=== PATIENT | male | born 1960 | race African-American/Black ===

== ENCOUNTER 2018-03-16 13:31 | Inpatient (IN) | payer BC, OTHER ==
--- NOTE | 2018-03-16 16:39 | PDOC ---
History of Present Illness - General Chief Complaint: Injury Stated Complaint: FALL/ BODY PAIN - History of Present Illness Initial Comments: 57-year-old male with multiple comorbidities including peripheral vascular disease presents for evaluation after fall yesterday. He states he fell down steps because he lost his balance and tripped hitting his head and injuring his left lower leg.There was no loss of consciousness post injury nausea or vomiting. He does have a headache. No dizziness. 03/16/18 16:37 03/16/18 16:38 Past History - Past Medical History Allergies/Adverse Reactions: Allergies Allergy/AdvReac Type Severity Reaction Status Date / Time Penicillins Allergy Rash Verified 03/16/18 13:55 Home Medications: Ambulatory Orders Aspirin [ASA] 81 mg PO DAILY 04/16/12 BUPROPion HCL "SR" [Wellbutrin Sr [Nf]] 150 mg PO DAILY 04/16/12 Zolpidem Tartrate [Ambien] 10 mg PO HS 04/16/12 predniSONE [Deltasone] 40 mg PO DAILY 04/16/12 Albuterol Sulfate Inhaler - [Ventolin HFA Inhaler -] 2 inh IH QID PRN #0 inh 03/22 Bupropion HCl [Wellbutrin Xl -] 300 mg PO AM #0 tab 04/18/12 Alprazolam [Xanax] 2 mg PO DAILY 03/16/18 Atorvastatin Ca [Lipitor] 20 mg PO HS 03/16/18 Cilostazol [Pletal -] 100 mg PO BID 03/16/18 Clopidogrel Bisulfate [Plavix] 75 mg PO DAILY 03/16/18 Docusate Sodium [Colace] 100 mg PO TID 03/16/18 Duloxetine HCl [Cymbalta] 30 mg PO DAILY 03/16/18 Ferrous Sulfate 325 mg PO BID 03/16/18 Fluticasone Propionate [Flovent Diskus] 100 mcg IH BID 03/16/18 Gabapentin 800 mg PO BID 03/16/18 Montelukast Sodium [Singulair] 10 mg PO HS 03/16/18 Nicotine Patch [Nicoderm Patch -] 1 patch TD DAILY 03/16/18 Oxycodone HCl/Acetaminophen [Oxycodone-Acetaminophen 10-325] 1 each PO QID 03/16 Pregabalin [Lyrica -] 50 mg PO BID 03/16/18 Tadalafil [Adcirca] 20 mg PO ASDIR 03/16/18 Cardiac Disorders: Yes (peripheral artery disease) COPD: No HTN: Yes Hypercholesterolemia: Yes Psychiatric Problems: Yes (anxiety) - Surgical History Cardiac Surgery: Yes (angioplasty x4) - Suicide/Smoking/Psychosocial Hx Smoking Status: Yes Smoking History: Current every day smoker Number of Cigarettes Smoked Daily: 12 Information on smoking cessation initiated: No 'Breaking Loose' booklet given: 04/16/12 Hx Alcohol Use: No Review of Systems - Review of Systems Musculoskeletal: Yes: See HPI Neurological: Yes: Headache All Other Systems: Reviewed and Negative *Physical Exam - Vital Signs Last Vital Signs Temp Pulse Resp BP Pulse Ox 98.5 F 85 18 107/63 97 03/16/18 13:55 03/16/18 13:55 03/16/18 13:55 03/16/18 13:55 03/16/18 13:55 - Physical Exam Comments: HEAD: NC/AT EYES: Conjuntiva clear Ears: Canals and TM's normal NOSE: No d/c THROAT: Moist mucous membrances, oral pharanx clear, uvula midline NECK: Supple without adenopathy CARDIAC: S1 S2 LUNGS: CTA Full and Equal breath sounds ABDOMEN: Soft NT ND MS: Full ROM in all joints without edema the left lower leg is tender about the area of the mid shaft of the fibula do not appreciate crepitation NEUROLOGIC: No gross sensory or motor deficits, NVID SKIN: Normal color and temperature no lesions or rashes 03/16/18 16:38 ED Treatment Course - RADIOLOGY Radiology Studies Ordered: Category Date Time Status HEAD CT WITHOUT CONTRAST [CT] Stat CT Scan 03/16/18 16:36 Ordered LEG TIB/FIB-LEFT [RAD] Stat Radiology 03/16/18 16:37 Ordered Medical Decision Making - Medical Decision Making CAT scan of his head and x-ray of the left leg are normal showing no acute pathology. I discussed this case with a preventative care keycase assembler from [facility] and it seems this patient has had recent mental status changes. I was unaware of this at the initial evaluation the patient seemed to be a good historian. Due to these recent mental status changes he is unable to take care of his 10-year-old son who is telling the snow removal/plowing that he has frequent falls is beginning to talk to himself and calls for people that are not present in the home. He is unable to take care of his son at this point. Zonal able to cook improperly feed him. I will transfer this patient to the main ER for further evaluation 03/16/18 18:45 *DC/Admit/Observation/Transfer Diagnosis at time of Disposition: Closed head injury, Mental status alteration - Referrals Referrals: Cynthia Charlton MD [Primary Care Provider] - - Patient Instructions - Post Discharge Activity
--- NOTE | 2018-03-16 19:37 | PDOC ---
History of Present Illness - General Chief Complaint: Injury Stated Complaint: FALL/ BODY PAIN Time Seen by Provider: 03/16/18 19:36 History Source: Patient - History of Present Illness Initial Comments: 03/16/18 20:01 Patient is a 57 year old male with a PMH of PVD (s/p femoral artery bypass), CVA x2 (uncertain of residual deficits), presents to our ED after a fall down a flight of stairs. Patient states he was helping his son with laundry when the bag became to heavy and he fell down a flight of stairs hitting his head and "twisting" his right leg. Patient was evaluated in triage at which time he was noted by family members to have a recent h/o mental status changes. CT head and RLE x-ray were negative and patient was sent to ED for further evaluation as patient noted some recent mental status changes including being confused as to where he is located (patient was in [place] but was insistent he was in [place] on two occasions this week) as well as waking up in the middle of the night asking for his daughter who lives out of state and his mother who is . Patient affirms he is unable to complete some ADL's including cooking and cleaning Patient's sister interviewed separately notes h/o alcohol and cocaine abuse as well 4-5 year history of multiple episodes of angry outbursts, stating he is unable to care for his son but denies any lynda psychiatric disorder diagnosis. Patient's sister also notes 2-3 month h/o weight loss. Allergy: Penicillin Surgical: Femoral artery bypass Social: patient denies current toxic habits but acknowledges past cocaine use Past History - Past Medical History Allergies/Adverse Reactions: Allergies Allergy/AdvReac Type Severity Reaction Status Date / Time Penicillins Allergy Rash Verified 03/16/18 13:55 Home Medications: Ambulatory Orders Aspirin [ASA] 81 mg PO DAILY 04/16/12 BUPROPion HCL "SR" [Wellbutrin Sr [Nf]] 150 mg PO DAILY 04/16/12 Zolpidem Tartrate [Ambien] 10 mg PO HS 04/16/12 predniSONE [Deltasone] 40 mg PO DAILY 04/16/12 Albuterol Sulfate Inhaler - [Ventolin HFA Inhaler -] 2 inh IH QID PRN #0 inh 03/22 Bupropion HCl [Wellbutrin Xl -] 300 mg PO AM #0 tab 04/18/12 Alprazolam [Xanax] 2 mg PO DAILY 03/16/18 Atorvastatin Ca [Lipitor] 20 mg PO HS 03/16/18 Cilostazol [Pletal -] 100 mg PO BID 03/16/18 Clopidogrel Bisulfate [Plavix] 75 mg PO DAILY 03/16/18 Docusate Sodium [Colace] 100 mg PO TID 03/16/18 Duloxetine HCl [Cymbalta] 30 mg PO DAILY 03/16/18 Ferrous Sulfate 325 mg PO BID 03/16/18 Fluticasone Propionate [Flovent Diskus] 100 mcg IH BID 03/16/18 Gabapentin 800 mg PO BID 03/16/18 Montelukast Sodium [Singulair] 10 mg PO HS 03/16/18 Nicotine Patch [Nicoderm Patch -] 1 patch TD DAILY 03/16/18 Oxycodone HCl/Acetaminophen [Oxycodone-Acetaminophen 10-325] 1 each PO QID 03/16 Pregabalin [Lyrica -] 50 mg PO BID 03/16/18 Tadalafil [Adcirca] 20 mg PO ASDIR 03/16/18 Cardiac Disorders: Yes (peripheral artery disease) COPD: No HTN: Yes Hypercholesterolemia: Yes Psychiatric Problems: Yes (anxiety) - Surgical History Cardiac Surgery: Yes (angioplasty x4) - Suicide/Smoking/Psychosocial Hx Smoking Status: Yes Smoking History: Current every day smoker Number of Cigarettes Smoked Daily: 12 Information on smoking cessation initiated: No 'Breaking Loose' booklet given: 04/16/12 Hx Alcohol Use: No Review of Systems - Review of Systems Constitutional: No: Chills, Fever HEENTM: No: Blurred Vision Respiratory: No: Cough, Shortness of Breath Cardiac (ROS): No: Chest Pain, Lightheadedness, Palpitations, Syncope ABD/GI: No: Constipated, Diarrhea, Nausea, Vomiting : No: Burning Psychiatric: Yes: Stressors, Sleep Pattern Change, Emotional Problems, Mood Swings *Physical Exam - Vital Signs Last Vital Signs Temp Pulse Resp BP Pulse Ox 98.5 F 85 18 107/63 97 03/16/18 13:55 03/16/18 13:55 03/16/18 13:55 03/16/18 13:55 03/16/18 13:55 - Physical Exam General Appearance: Yes: Nourished, Thin HEENT: positive: EOMI, [place] Neck: positive: Trachea midline, Supple Respiratory/Chest: positive: Lungs Clear, Normal Breath Sounds Cardiovascular: positive: S1, S2. negative: Edema, JVD Gastrointestinal/Abdominal: positive: Normal Bowel Sounds, Soft. negative: Guarding, Rebound, Tenderness, Hernia, Mass Musculoskeletal: negative: CVA Tenderness (R), CVA Tenderness (L) Extremity: positive: Normal Capillary Refill, Normal Inspection Integumentary: positive: Normal Color, Dry, Warm Neurologic: positive: Fully Oriented, Alert, Other (flat affect, does not make eye contact). negative: Confused, Disoriented Deep Tendon Reflexes: Knee (L): 3+, Knee (R): 3+ ED Treatment Course - LABORATORY CBC & Chemistry Diagram: 03/16/18 21:25 03/17/18 00:59 Medical Decision Making - Medical Decision Making 03/16/18 20:32 57 year old male with a PMH of PVD (s/p B/L femoral bypass), CVA x2 and h/o ETOH and cocaine abuse evaluated for AMS including hallucinations, possible sundowning like changes. Frontal diagnosis: substance abuse, vitamin deficiencies, hypothyroidism, vascular dementia, NPH or possibly malignancy though latter two diagnoses are less likely. 03/16/18 20:34 UTox positive for benzodiazepines and opiods. 03/16/18 20:50 UA shows 472 WBC, 3+ Leukocyte Esterase, PCN Allergy, will give Bactrim + IV NS 03/16/18 23:20 Patient sleeping comfortably. No leukocytosis, ammonia mildy elevated @ 66. CMP pending, B12, TSH pending. Planned disposition admission + neuro consult. 03/17/18 02:37 CMP shows mildly elevated AST, elevated B-12. Case d/w hospitalist service will accept for admission for further evaluation including full neurological evaluation. *DC/Admit/Observation/Transfer Diagnosis at time of Disposition: Closed head injury, Mental status alteration - Referrals Referrals: Cynthia Charlton MD [Primary Care Provider] - - Patient Instructions - Post Discharge Activity
[2018-03-16 19:44] LABS: URINE APPEARANCE CLOUDY; URINE BILIRUBIN NEGATIVE (<2.0 mg/dL); URINE COLOR DKYELLOW; URINE GLUCOSE (UA) NEGATIVE (NEGATIVE); URINE KETONE NEGATIVE (NEGATIVE); URINE NITRITE POSITIVE (NEGATIVE); URINE UROBILINOGEN NEGATIVE mg/dL (0.2-1.0)
[2018-03-16 20:02] LABS: URINE LEUK ESTERASE 3+ (NEGATIVE); URINE PROTEIN 1+ (NEGATIVE)
[2018-03-16 20:21] LABS: URINE BACTERIA RARE /hpf (NONE SEEN); URINE MUCUS RARE
[2018-03-16 20:30] LABS: COCAINE, UR NEGATIVE ng/ml (CUTOFF=300); METHADONE, UR NEGATIVE ng/ml (CUTOFF=300); PHENCYCLIDINE,URINE NEGATIVE ng/ml (CUTOFF=25); URINE AMPHETAMINES NEGATIVE ng/ml (CUTOFF=500); URINE BARBITURATES NEGATIVE ng/ml (CUTOFF=200)
[2018-03-16 20:32] LABS: OPIATES, URI POSITIVE ng/ml (CUTOFF=300); URINE BENZODIAZEPINES POSITIVE ng/ml (CUTOFF=200)
[2018-03-16] MEDS ORDERED: SODIUM CHLORIDE 0.9% 500 ML INFUS.BAG IV ONE (20:59)
[2018-03-16] MEDS ORDERED: NITROFURANTOIN MACROCRYSTAL 50 MG CAPSULE (FP) PO ONE (21:15)
[2018-03-16] MEDS ORDERED: NITROFURANTOIN MACROCRYSTAL 50 MG CAPSULE (FP) PO SCH (21:15)
--- NOTE | 2018-03-16 21:36 | PDOC ---
Attending Attestation - HPI HPI: 03/16/18 21:42 The patient is a 57 year old male with a past medical history of peripheral artery disease, hypertension, and hyperlipidemia who presents to the emergency department for evaluation of altered mental status. The patient reports hitting his head yesterday after falling down a flight of stairs. He denies of loss of consciousness. The patient reports feeling confused and states he woke up this morning screaming for his daughter, but he states he screams because he misses his daughter. The patient states he does not trust anyone at all besides his son. He notes he was with his son in [place] yesterday, but thought he was in [place]. Patient reports associated symptom of a headache. The patient denies chest pain, shortness of breath, and dizziness. Denies fever , chills, nausea, vomiting, diarrhea, and constipation. Denies urinary urgency/ frequency, dysuria, and hematuria. Denies hallucinations and suicidal/homicidal ideations. Allergies: Penicillins Social History: Current everyday smoker. EMR reveals History of EtOH and cocaine abuse. Pt is denying substance abuse history. Surgical History: Angioplasty x4. Femoral artery bypass (08/2017) PCP: Dr. Cynthia Charlton ([phone]) - Physicial Exam PE: NAD EOMI, [place] MMM, OP WNL NCAT, no midline cervical tenderness Soft, NTND No edema, WWP, no rash (+)Difficulty assessing gait favoring left leg secondary to recent injury. Neuro grossly intact. A&O x 3, Mood: irritable. <Reji Escoto - Last Filed: 03/16/18 23:13> - Resident Resident Name: Candi Zhang - ED Attending Attestation I have performed the following: I have examined & evaluated the patient, The case was reviewed & discussed with the resident, I agree w/resident's findings & plan, Exceptions are as noted - Medical Decision Making 03/17/18 00:17 57yoM initially presented for fall, now on hold for concern of reports of AMS and odd behavior. pt is sole caregiver for 10yo son. On evaluation, pt is irritable and defensive, no e/o acute psychosis. Concern for organic etiology of behavior issues. - labs - ekg - cxr - HCT obtained from [facility] - social work - admit. Pt's son is staying with the pt's sister for the time being. <Domi Smith - Last Filed: 03/17/18 00:18> Attestations - Attestations Documentation prepared by Reji Escoto, acting as biomedical equipment specialist for Domi Smith MD. <Reji Escoto - Last Filed: 03/16/18 23:13>
[2018-03-16 21:45] LABS: BASO % 0.8 % (0-2.0); EOS % 3.2 % (0-4.5); HEMATOCRIT 41.6 % (35.4-49); HEMOGLOBIN 13.5 GM/dL (11.7-16.9); MCH 28.4 pg (25.7-33.7); MCHC 32.4 g/dl (32.0-35.9); MEAN CELL VOLUME 87.8 fl (80-96); MONO % 5.1 % (3.8-10.2); NEUT % 64.9 % (42.8-82.8); RBC 4.74 M/mm3 (4.00-5.60); RDW 16.7 % (11.9-15.9); WHITE BLOOD COUNT 7.2 K/mm3 (4.0-10.0)
[2018-03-16] MEDS ORDERED: NITROFURANTOIN MACROCRYSTAL 50 MG CAPSULE (FP) ONE (22:03)
[2018-03-16 22:35] LABS: PLATELET COUNT 235 K/MM3 (134-434)
[2018-03-16 22:36] LABS: MEAN PLT VOLUME 8.7 fl (7.5-11.1); PLATELET ESTIMATE ADEQUATE
[2018-03-17 01:41] LABS: ALBUMIN 3.7 g/dl (3.4-5.0); ANION GAP 6 (8-16); BILIRUBIN,TOTAL 0.5 mg/dL (0.2-1.0); BLOOD UREA NITROGEN 21 mg/dL (7-18); CALCIUM 9.2 mg/dL (8.5-10.1); CHLORIDE 108 mmol/L (98-107); CO2 30 mmol/L (21-32); CREATININE 1.4 mg/dL (0.7-1.3); GLUCOSE,RANDOM 89 mg/dL (74-106); POTASSIUM 4.4 mmol/L (3.5-5.1); SGOT/AST 46 U/L (15-37); SGPT/ALT 29 U/L (12-78); SODIUM 144 mmol/L (136-145); TOT PROT 7.3 g/dl (6.4-8.2)
[2018-03-17 01:42] LABS: ALK PHOS 90 U/L (45-117)
[2018-03-17] MEDS ORDERED: ACETAMINOPHEN 500 MG TABLET (FP) PO ONE (02:13)
[2018-03-17] MEDS ORDERED: ACETAMINOPHEN 325 MG TABLET (FP) ONE (02:27)
[2018-03-17] MEDS: SODIUM CHLORIDE 1,000 ML IV SCH ×2 (04:34→23:29)
[2018-03-17] MEDS: HEPARIN NA (PORCINE) 5,000 UNITS/ML 1ML VIAL SQ SCH ×3 (06:05→21:32)
--- NOTE | 2018-03-17 06:42 | HP ---
CHIEF COMPLAINT: left leg pain s/p fall PCP: HISTORY OF PRESENT ILLNESS: Three days prior, patient fell a flight of stairs while carrying a heavy laundry bag, hitting his head and left leg. He denies any LOC, nausea or vomiting. Persistence of pain prompted patient to see a social sciences research scientist and was subsequently brought to the ED. At the ED, patient's sister reported patient to have altered mental status. She noted patient had confusion of where he was previously, insisting he was in [place] when he was in [place]. She also reported patient to have 4-5 year history of multiple episodes of angry outbursts, stating unable to care for his son. But upon interview, patient was very insistent that he should be the only one to take care of his son, and does not want the aunt to do anything with him. Patient reported to be depressed, have no appetite and had weight loss, and sleep disturbances (takes Remeron). He denied chest pain, SOB, headache, nausea , vomiting, fever, chills, diarrhea, constipation, dysuria. ER course was notable for: (1)Ammonia 66.25, Vit B12 1404 (2)UA: protein 1+, blood 1+, leukocyte esterase 3+, WBC 472, RBC 13 (3)Urine drug screen:Opiates +, BZD + (4)CT head - negative; RLE Xray - negative Recent Travel:denies any recent travel PAST MEDICAL HISTORY: PVD CVA HTN HLD Anxiety Disorder PAST SURGICAL HISTORY: Femoral artery bypass Social History: Smokin sticks per day (12 sticks per day on the chart) Alcohol:denies EtOH use Drugs: denies illicit drug use Family History: Allergies Penicillins Allergy (Verified 03/16/18 13:55) Rash HOME MEDICATIONS: Home Medications Medication Instructions Recorded Aspirin [ASA] 81 mg PO DAILY 04/16/12 BUPROPion HCL "SR" [Wellbutrin Sr 150 mg PO DAILY 04/16/12 [Nf]] Zolpidem Tartrate [Ambien] 10 mg PO HS 04/16/12 predniSONE [Deltasone] 40 mg PO DAILY 04/16/12 Albuterol Sulfate Inhaler - 2 inh IH QID PRN #0 inh 04/18/12 [Ventolin HFA Inhaler -] Bupropion HCl [Wellbutrin Xl -] 300 mg PO AM #0 tab 04/18/12 Alprazolam [Xanax] 2 mg PO DAILY 03/16/18 Atorvastatin Ca [Lipitor] 20 mg PO HS 03/16/18 Cilostazol [Pletal -] 100 mg PO BID 03/16/18 Clopidogrel Bisulfate [Plavix] 75 mg PO DAILY 03/16/18 Docusate Sodium [Colace] 100 mg PO TID 03/16/18 Duloxetine HCl [Cymbalta] 30 mg PO DAILY 03/16/18 Ferrous Sulfate 325 mg PO BID 03/16/18 Fluticasone Propionate [Flovent 100 mcg IH BID 03/16/18 Diskus] Gabapentin 800 mg PO BID 03/16/18 Montelukast Sodium [Singulair] 10 mg PO HS 03/16/18 Nicotine Patch [Nicoderm Patch -] 1 patch TD DAILY 03/16/18 Oxycodone HCl/Acetaminophen 1 each PO QID 03/16/18 [Oxycodone-Acetaminophen 10-325] Pregabalin [Lyrica -] 50 mg PO BID 03/16/18 Tadalafil [Adcirca] 20 mg PO ASDIR 03/16/18 REVIEW OF SYSTEMS CONSTITUTIONAL: +loss of appetite, +weight loss Absent: fever, chills, diaphoresis, generalized weakness, malaise HEENT: Absent: rhinorrhea, nasal congestion, throat pain, throat swelling, difficulty swallowing, mouth swelling, ear pain, eye pain, visual changes CARDIOVASCULAR: Absent: chest pain, syncope, palpitations, irregular heart rate, lightheadedness , peripheral edema RESPIRATORY: Absent: cough, shortness of breath, dyspnea with exertion, orthopnea, wheezing, stridor, hemoptysis GASTROINTESTINAL: Absent: abdominal pain, abdominal distension, nausea, vomiting, diarrhea, constipation, melena, hematochezia GENITOURINARY: Absent: dysuria, frequency, urgency, hesitancy, hematuria, flank pain, genital pain MUSCULOSKELETAL: Absent: myalgia, arthralgia, joint swelling, back pain, neck pain SKIN: Absent: rash, itching, pallor HEMATOLOGIC/IMMUNOLOGIC: Absent: easy bleeding, easy bruising, lymphadenopathy, frequent infections ENDOCRINE: Absent: unexplained weight gain, unexplained weight loss, heat intolerance, cold intolerance NEUROLOGIC: Absent: headache, focal weakness or paresthesias, dizziness, unsteady gait, seizure, bladder or bowel incontinence PSYCHIATRIC: +anxiety, +depression Absent: suicidal or homicidal ideation, hallucinations. PHYSICAL EXAMINATION Vital Signs - 24 hr 03/16/18 03/17/18 03/17/18 13:55 02:33 05:29 Temperature 98.5 F 100.7 F H 98.9 F Pulse Rate 85 Pulse Rate [ 73 Right] Respiratory 18 16 Rate Blood Pressure 107/63 Blood Pressure 113/63 [Left Arm] O2 Sat by Pulse 97 100 Oximetry (%) GENERAL: Awake, alert, and fully oriented, in no acute distress. HEAD: Normal with no signs of trauma. EYES: Pupils equal, round and reactive to light, extraocular movements intact, sclera anicteric, conjunctiva clear. EARS, NOSE, THROAT: Ears normal, nares patent, oropharynx clear without exudates. Moist mucous membranes. NECK: Normal range of motion, supple without lymphadenopathy, JVD, or masses. LUNGS: Breath sounds equal, clear to auscultation bilaterally. No accessory muscle use. HEART: Regular rate and rhythm, normal S1 and S2 without murmur, rub or gallop. ABDOMEN: Soft, nontender, not distended, normoactive bowel sounds. MUSCULOSKELETAL: Normal range of motion at all joints. No CVA tenderness. UPPER EXTREMITIES: 2+ pulses, warm, well-perfused. No cyanosis. No clubbing. No peripheral edema. LOWER EXTREMITIES: 2+ pulses, warm, well-perfused. No calf tenderness. No peripheral edema. NEUROLOGICAL: +facial droop (from previous CVA), sensation intact, motor 5/5. Normal speech. Normal gait. PSYCHIATRIC: Cooperative. Good eye contact. Appropriate mood and affect. SKIN: Warm, dry, normal turgor, no rashes or lesions noted. Laboratory Results - last 24 hr 03/16/18 03/16/18 03/16/18 19:25 19:25 21:25 WBC 7.2 RBC 4.74 Hgb 13.5 Hct 41.6 D MCV 87.8 MCH 28.4 MCHC 32.4 RDW 16.7 H Plt Count 235 MPV 8.7 Absolute Neuts (auto) 4.7 Neutrophils % 64.9 Lymphocytes % 26.0 Monocytes % 5.1 D Eosinophils % 3.2 Basophils % 0.8 Nucleated RBC % 0 Platelet Estimate Adequate Platelet Comment Sodium Potassium Chloride Carbon Dioxide Anion Gap BUN Creatinine Creat Clearance w eGFR Random Glucose Calcium Total Bilirubin AST ALT Alkaline Phosphatase Ammonia Total Protein Albumin Vitamin B12 TSH Urine Color Dkyellow Urine Appearance Cloudy Urine pH 5.0 Ur Specific [place] 1.018 Urine Protein 1+ H Urine Glucose (UA) Negative Urine Ketones Negative Urine Blood 1+ H Urine Nitrite Positive Urine Bilirubin Negative Urine Urobilinogen Negative Ur Leukocyte Esterase 3+ H Urine WBC (Auto) 472 Urine RBC (Auto) 13 Urine Bacteria Rare Urine Mucus Rare Opiates Screen Positive Methadone Screen Negative Barbiturate Screen Negative Phencyclidine Screen Negative Ur Amphetamines Screen Negative MDMA (Ecstasy) Screen Negative Benzodiazepines Screen Positive Cocaine Screen Negative U Marijuana (THC) Screen Negative 03/16/18 03/16/18 03/16/18 21:25 21:25 21:25 WBC RBC Hgb Hct MCV MCH MCHC RDW Plt Count MPV Absolute Neuts (auto) Neutrophils % Lymphocytes % Monocytes % Eosinophils % Basophils % Nucleated RBC % Platelet Estimate Platelet Comment Sodium Cancelled Potassium Cancelled Chloride Cancelled Carbon Dioxide Cancelled Anion Gap Cancelled BUN Cancelled Creatinine Cancelled Creat Clearance w eGFR Cancelled Random Glucose Cancelled Calcium Cancelled Total Bilirubin Cancelled AST Cancelled ALT Cancelled Alkaline Phosphatase Cancelled Ammonia 66.25 H Total Protein Cancelled Albumin Cancelled Vitamin B12 TSH Cancelled Urine Color Urine Appearance Urine pH Ur Specific [place] Urine Protein Urine Glucose (UA) Urine Ketones Urine Blood Urine Nitrite Urine Bilirubin Urine Urobilinogen Ur Leukocyte Esterase Urine WBC (Auto) Urine RBC (Auto) Urine Bacteria Urine Mucus Opiates Screen Methadone Screen Barbiturate Screen Phencyclidine Screen Ur Amphetamines Screen MDMA (Ecstasy) Screen Benzodiazepines Screen Cocaine Screen U Marijuana (THC) Screen 03/16/18 03/17/18 03/17/18 21:25 00:59 00:59 WBC RBC Hgb Hct MCV MCH MCHC RDW Plt Count MPV Absolute Neuts (auto) Neutrophils % Lymphocytes % Monocytes % Eosinophils % Basophils % Nucleated RBC % Platelet Estimate Platelet Comment Sodium 144 Potassium 4.4 Chloride 108 H Carbon Dioxide 30 D Anion Gap 6 L BUN 21 H Creatinine 1.4 H Creat Clearance w eGFR 52.62 Random Glucose 89 D Calcium 9.2 Total Bilirubin 0.5 AST 46 H ALT 29 Alkaline Phosphatase 90 Ammonia Total Protein 7.3 Albumin 3.7 Vitamin B12 Cancelled 1404 H TSH 0.74 Urine Color Urine Appearance Urine pH Ur Specific [place] Urine Protein Urine Glucose (UA) Urine Ketones Urine Blood Urine Nitrite Urine Bilirubin Urine Urobilinogen Ur Leukocyte Esterase Urine WBC (Auto) Urine RBC (Auto) Urine Bacteria Urine Mucus Opiates Screen Methadone Screen Barbiturate Screen Phencyclidine Screen Ur Amphetamines Screen MDMA (Ecstasy) Screen Benzodiazepines Screen Cocaine Screen U Marijuana (THC) Screen CBC, BMP 03/16/18 21:25 03/17/18 00:59 ASSESSMENT/PLAN: Patient is a 57 year old male with past medical history of PVD (s/p femoral artery bypass), CVA, HTN, HLD, and Anxiety disorder, presented with left leg pain from fall. At the ED, patient's sister reported patient to have altered mental status. #Altered mental status: patient had episode of fever at the ED. -probably secondary to UTI, will need to rule out other causes. -blood culture and CXR ordered -fever and AMS, no nuchal rigidity -- rule out meningitis. -rule out Syphilis -- RPR titers pending. -patient had episodes of angry outbursts and depression -- Acute psychosis vs. Bipolar disorder. -opiates and BZD positive on urine -- may be drug-induced. -Psychiatry consult appreciated. -rule out stroke-- brain MRI ordered. -Dr. Cuellar consult appreciated. #Urinary Tract infection: -UA showed 1+protein, 1+blood, 3+leukocyte esterase, 472 WBC, 13 RBC -urine culture pending -IV fluids started -At the ED, patient's sister reported patient to have altered mental status. -IV Levofloxacin 750 mg qd x 5 days #Hypertension: chronic, controlled #Hyperlipidemia: chronic -continue Lipitor 20 mg. #FEN -IV NS (0.9%) at 100ml/hr -electrolytes wnl, routine BMP monitoring -sodium restricted diet #Prophylaxis -Heparin 5000 units sq tid #Disposition -admit to med-surg -full code Visit type - Emergency Visit Emergency Visit: Yes ED Registration Date: 03/17/18 Care time: The patient presented to the Emergency Department on the above date and was hospitalized for further evaluation of their emergent condition. - New Patient This patient is new to me today: Yes Date on this admission: 03/17/18 - Critical Care Critical Care patient: No Hospitalist Screening - Colonoscopy Questionnaire Colonoscopy Questionnaire: Colonoscopy Questionnaire - Patient: 50 - 75 years old and never had a screening colonoscopy: Unknown History of colon or rectal polyps, or CA: Unknown History of IBD, Crohn's disease or UC: Unknown History of abdominal radiation therapy as a child: Unknown - Relative: 1 with colon or rectal CA, or polyps at age 60 or younger: Unknown Colon or rectal CA diagnosed at age 45 or younger: Unknown Multiple relatives with colon or rectal CA: Unknown - Outcome: Screening Result: Negative Screen
--- NOTE | 2018-03-17 06:56 | PN ---
Teaching Attending Note Name of Resident: Megan Chowdhury ATTENDING PHYSICIAN STATEMENT I saw and evaluated the patient. Chart, data, imaging reviewed. I reviewed the resident's note and discussed the case with the resident. I agree with the resident's findings and plan as documented. SUBJECTIVE: 57 year old male with past medical history of PVD (s/p femoral artery bypass), CVA, HTN, HLD, and Anxiety disorder, c/o left leg pain from fall. Three days prior, patient fell a flight of stairs while carrying a heavy laundry bag, hitting his head and left leg. There was no LOC. Patient with AMS, brought in to hospital for further eval. He has chronic right facial droop- says for the last 2 years. OBJECTIVE: Last Vital Signs Temp Pulse Resp BP Pulse Ox 98.9 F 73 16 113/63 100 03/17/18 05:29 03/17/18 02:33 03/17/18 02:33 03/17/18 02:33 03/17/18 02:33 General- nad, drowsy heent -atraumatic, poor dentition neck -supple cv- s1+s2+ rrr chest- cta b/l abdomen -soft, bs+ ext- left lower ext tenderness Abnormal Lab Results 03/16/18 03/16/18 03/16/18 19:25 21:25 21:25 RDW 16.7 H Chloride Anion Gap BUN Creatinine AST Ammonia 66.25 H Vitamin B12 Urine Protein 1+ H Urine Blood 1+ H Ur Leukocyte Esterase 3+ H 03/17/18 03/17/18 00:59 00:59 RDW Chloride 108 H Anion Gap 6 L BUN 21 H Creatinine 1.4 H AST 46 H Ammonia Vitamin B12 1404 H Urine Protein Urine Blood Ur Leukocyte Esterase ASSESSMENT AND PLAN: #57yo man s/p fall and altered mental status- TSH, Vit B12 were wnl. AMS may be due to UTI as UA showed pyuria and pt with fever. Should r/o meningitis/ encephalitis as pt was confused with fever present. R/o occult stroke as there is history of vascular disease. Head CT was was neg but MRI is more sensitive. Utox also pos for opiates and benzos which may contribute to AMS. -tele/obs -neuro evaluation for LP to r/o meningitis -brain MRI to evaluate for occult infarcts -syphilis serology -lyme serology -urine culture -blood culture -blood ethanol level -ceftriaxone 1g IV q24hrs for possible uti -fall precuations -bed rest -heparin sc for dvt ppx #[place] Palsy- r/o lyme, occult stroke -see resident note for details
[2018-03-17 08:53] LABS: ANION GAP 10 (8-16); BLOOD UREA NITROGEN 21 mg/dL (7-18); CALCIUM 9.3 mg/dL (8.5-10.1); CHLORIDE 109 mmol/L (98-107); CO2 25 mmol/L (21-32); CREATININE 1.3 mg/dL (0.7-1.3); GLUCOSE,RANDOM 84 mg/dL (74-106); MAGNESIUM 2.1 mg/dL (1.8-2.4); SODIUM 144 mmol/L (136-145)
[2018-03-17 09:02] LABS: HEMATOCRIT 35.6 % (35.4-49); HEMOGLOBIN 11.7 GM/dL (11.7-16.9); MCH 28.7 pg (25.7-33.7); MCHC 32.8 g/dl (32.0-35.9); MEAN CELL VOLUME 87.4 fl (80-96); MEAN PLT VOLUME 8.5 fl (7.5-11.1); PLATELET COUNT 187 K/MM3 (134-434); RBC 4.08 M/mm3 (4.00-5.60); RDW 16.5 % (11.9-15.9); WHITE BLOOD COUNT 5.4 K/mm3 (4.0-10.0)
--- NOTE | 2018-03-17 12:13 | CON.PSY ---
Psychiatry Consult Chief Complaint: 57 year old male with a history of anxiety disorder and chronic medical [id number] including CVA. Patient apparantly fell on the stairs and found to have AMS. Symptoms: reports: Anxiety - Previous Psychiatric Treatment Outpatient: Less than 6 mos ago Inpatient: None - Previous Substance Abuse Treatment Outpatient: None Inpatient: None - Reason for Previous Treatment Reason for Previous Treatment: Anxiety or Panic Disorder - Current Medications Current Medications: Active Medications Heparin Sodium (Porcine) (Heparin -) 5,000 unit SQ TID COUNT INCLUDES THE [facility] Last Admin: 03/17/18 06:05 Dose: Not Given Sodium Chloride (Normal Saline -) 1,000 mls @ 75 mls/hr IV ASDIR COUNT INCLUDES THE [facility] Last Admin: 03/17/18 04:34 Dose: 75 mls/hr Levofloxacin (Levaquin 750 Mg Premixed Ivpb -) 750 mg in 150 mls @ 150 mls/hr IVPB DAILY COUNT INCLUDES THE [facility]; Protocol Stop: 03/22/18 09:59 Last Admin: 03/17/18 11:11 Dose: 150 mls/hr - Allergies Allergies: Allergies Allergy/AdvReac Type Severity Reaction Status Date / Time Penicillins Allergy Rash Verified 03/16/18 13:55 - Current Living Status Usual Living Arrangement: With Child - Current Mental Status Evaluation Appearance: Well Groomed Attitude: Cooperative - Affect Affect: Full Range Appropriateness: Appropriate to Content - Mood Mood: Anxious - Speech/Language Expressive: Coherent - Psychomotor Activity Psychomotor Activity: Normal - Thought Process Thought Process: Intact - Thought Content Hallucinations: Absent Delusions: Absent - Self Perception Self Perception: No Impairment - Cognition Attention: Alert Orientation: Time Memory, Immediate Recall: Intact Memory, Short Term: 3/3 Memory, Remote with Promptin/3 - Concentration Serial Sevens Intact: Yes Simple Calculations Intact: Yes - Abstraction Proverb Interpretation: Intact Judgement: Intact - Insight Insight: Intact - Impulse Control Impulse Control: Good Control - Suicidal Ideation Suicidal Ideation: No - Homicidal Ideation Homicidal Ideation: No Assessment/Plan 1) Continue with Xanax as prescribed, 2) Discharge when medically clear.
--- NOTE | 2018-03-17 16:26 | EKG ---
Test Reason : Blood Pressure : / mmHG Vent. Rate : 066 BPM Atrial Rate : 066 BPM P-R Int : 194 ms QRS Dur : 102 ms QT Int : 392 ms P-R-T Axes : -17 -01 006 degrees QTc Int : 410 ms NORMAL SINUS RHYTHM INCOMPLETE RIGHT BUNDLE BRANCH BLOCK POSSIBLE INFERIOR INFARCT , AGE UNDETERMINED ABNORMAL ECG Confirmed by Lm Hoskins MD ([id number]) on 03/17/2018 4:25:41 PM Referred By: Confirmed By:Lm Hoskins MD
[2018-03-17] MEDS ORDERED: PATIENT'S OWN MEDICATION (NON-FORMULARY) (Oxycodone Hcl/Acetaminophen [Oxycodone-Acetamino PO PRN (17:23)
[2018-03-17] MEDS ORDERED: MONTELUKAST NA 10 MG TABLET PO SCH (17:45)
[2018-03-17] MEDS: NICOTINE 21 MG/24 HOURS TOPICAL PATCH TD SCH (18:07)
--- NOTE | 2018-03-17 19:07 | PN ---
Teaching Attending Note Name of Resident: Jean Ahumada ATTENDING PHYSICIAN STATEMENT I saw and evaluated the patient. I reviewed the resident's note and discussed the case with the resident. I agree with the resident's findings and plan as documented. SUBJECTIVE:c/o foot pain which he states has improved. said he was not confused. he recalls all the events yesterday that he was carrying laundry down the stairs and dropped the basket on his foot and fell hitting his head. denies LOC, fever, chills, N/V/C/D, dysuria, hematuria or urinary urgency OBJECTIVE: Last Vital Signs Temp Pulse Resp BP Pulse Ox 98.4 F 68 18 130/76 100 03/17/18 18:00 03/17/18 18:00 03/17/18 18:00 03/17/18 18:00 03/17/18 16:36 General NAD A&O x3 CV S1 S2 RRR no murmur/rub/gallop Lungs CTA B/L no wheezing/rales/rhonchi Abdomen soft NT/ND Extremities R foot diffuse tenderness. pulse intact. able to ambulate the toes ASSESSMENT AND PLAN: 57 yo M with PMH PVD s/p fem-pop bypass, CVA, hTN, dyslipidemia and anxiety and presented to the Er after mechanical fall and felt to be confused on arrival 1. Acute metabolic encephalopathy- due to UTI. now appears oriented. claims he was never confused. will need to speak with family to determine baseline. started on Levaquin. PCN allergy noted. will f/u Cx. neuro consulted. 2. Mechanical fall- imaging negative for fracture. HEad CT negative for acute pathology. is able to ambulate on the foot. con tiwht pain control. PT eval. 3. PENNY- due to dehydration. on IVF. cont. avoid nephrotoxic agents 4. HTN- controlled 5. dyslipidemia- statin 6. bipolar- no signs of manic episode. on seroquel 7. DVT ppx- hep sq
[2018-03-17] MEDS ORDERED: ALBUTEROL SO4 0.083% IH SOL 2.5 MG/3 ML VIAL.NEB. NEB ONE (19:30)
--- NOTE | 2018-03-17 19:37 | CONSULT ---
Consult - text type - Consultation Consultation Note: NEUROLOGY CONSULTATION is greatly appreciated: This 57 yo RH man is disabled due to bipolar disease and sarcoidosis. Lives with his 10 yo son for whom he has legal custody that he "is trying to keep." PMH also sig for HTN, DM, Chol, COPD. PVD, s/p Fem-pop bypasses- on pletal AND Plavix. Patient continues to smoke, often while still wearing a nicoderm patch. H/O ETOH and stimulant abuse in the past. Denies current use. At this time he cannot recall the names of any of his medications. Apparently, he is on Wellbutrin (300 mg), possibly duloxetine, alprazolam, and lyrica (dose uncertain) and oxycodone for chronic leg pains. Seen by me in the past (last visit 03/06/17) for chronic B/L Mar's palsies attributed to sarcoidosis as well as chronic nocturnal leg pains (L>R) with negative workup and responsiveness to Dopamine agonists suggesting Dx of RLS. According to family, patient has had deterioration in behavior and organization of the last few weeks, and cannot care for his son. Now admitted after a fall down FOS carrying laundry without head trauma but with increased leg pains. X Rays - In ER: Urine HGV=[id number]. Pt started on levaquin. Ammonia=64 mg%. B12, TSH Normal. CT of head (reviewed): Normal BESS: No head trauma. Neck supple. Inocente's negative. Cor reg. Unkempt. NEURO: Found hiding under sheets but actually hypervigilent with pressured, confused speech and flight of ideas. Impossible to obtain a cogent recent history. Ox3. Moderate left and mild right peripheral facial weakness. Left exotropia with full EOM's Normal strength, tone bulk and reflexes. Toes downgoing Normal FTN Normal sensory. Romberg neg Gait: antalgic to the left foot. IMP: 1. Toxic-metabolic encephalopathy due to UTI. 2. Bipolar disease- currently manic (psychotic) 3. B/L Mar's Palsies due to sarcoidosis SUGGEST: Continue antibiotics vs UTI. XRays of the left foot. Repeat ammonia level. ELHAM levels. Continue alprazolam to avoid Benzodiazepine withdrawal. Continue Bupropion XL 300 mg qd while confirming home meds and doses. Quetiapine 50 mg PO q HS (no Zolpidem). Confirm behavioral changes with family members. May need Psyche Rx/in patient psyche transfer when UTI is cleared. Thank you very much, Guido Cuellar MD
[2018-03-17] MEDS: oxyCODONE HCL 5 MG TABLET PO PRN (20:46)
[2018-03-17] MEDS: ACETAMINOPHEN 325 MG TABLET (FP) PO PRN (20:46)
[2018-03-17] MEDS: QUEtiapine FUMARATE 25 MG TABLET (FP) PO SCH (20:48)
--- NOTE | 2018-03-17 20:56 | PN ---
Physical Exam: SUBJECTIVE: Patient seen and examined at bedside. pt was hiding under blanket and anxious c/o foot pain. denies LOC, fever, chills, RANDALL, N/V/D or urinary sxs OBJECTIVE: Vital Signs Period Temp Pulse Resp BP Sys/Roblero Pulse Ox Last 24 Hr 98.4 F-100.7 F 67-76 16-18 103-130/63-79 98-100 GENERAL: Awake, alert, and fully oriented. agitated and anxious. Found hiding under blanket.with pressured, confused speech and flight of ideas. difficult to obtain a coherent hx. HEAD: NCAT EYES: PERRL, extraocular movements intact, sclera anicteric, conjunctiva clear. EARS, NOSE, THROAT: nares patent, oropharynx clear without exudates.MMM NECK: Normal range of motion, supple without lymphadenopathy, JVD, or masses. LUNGS: CTAB. No accessory muscle use. HEART: RRR, normal S1 and S2 without murmur, rub or gallop. ABDOMEN: Soft, nontender, not distended, normoactive bowel sounds. MUSCULOSKELETAL: Normal range of motion at all joints. No CVA tenderness. UPPER EXTREMITIES: 2+ pulses, warm, well-perfused. No cyanosis. No clubbing. No peripheral edema. LOWER EXTREMITIES: 2+ pulses, warm, well-perfused. No calf tenderness. No peripheral edema. NEUROLOGICAL: +facial droop (from previous CVA), sensation intact, motor 5/5. Normal speech. Normal gait. PSYCHIATRIC: Cooperative. Good eye contact. agitated and anxious SKIN: Warm, dry, normal turgor, no rashes or lesions noted. Laboratory Results - last 24 hr 03/16/18 03/16/18 03/16/18 20:00 21:25 21:25 WBC 7.2 RBC 4.74 Hgb 13.5 Hct 41.6 D MCV 87.8 MCH 28.4 MCHC 32.4 RDW 16.7 H Plt Count 235 MPV 8.7 Absolute Neuts (auto) 4.7 Neutrophils % 64.9 Lymphocytes % 26.0 Monocytes % 5.1 D Eosinophils % 3.2 Basophils % 0.8 Nucleated RBC % 0 Platelet Estimate Adequate Platelet Comment Sodium Cancelled Potassium Cancelled Chloride Cancelled Carbon Dioxide Cancelled Anion Gap Cancelled BUN Cancelled Creatinine Cancelled Creat Clearance w eGFR Cancelled Random Glucose Cancelled Calcium Cancelled Phosphorus Magnesium Total Bilirubin Cancelled AST Cancelled ALT Cancelled Alkaline Phosphatase Cancelled Ammonia Total Protein Cancelled Albumin Cancelled Vitamin B12 TSH RPR Titer Nonreactive 03/16/18 03/16/18 03/16/18 21:25 21:25 21:25 WBC RBC Hgb Hct MCV MCH MCHC RDW Plt Count MPV Absolute Neuts (auto) Neutrophils % Lymphocytes % Monocytes % Eosinophils % Basophils % Nucleated RBC % Platelet Estimate Platelet Comment Sodium Potassium Chloride Carbon Dioxide Anion Gap BUN Creatinine Creat Clearance w eGFR Random Glucose Calcium Phosphorus Magnesium Total Bilirubin AST ALT Alkaline Phosphatase Ammonia 66.25 H Total Protein Albumin Vitamin B12 Cancelled TSH Cancelled RPR Titer 03/17/18 03/17/18 03/17/18 00:59 00:59 08:10 WBC 5.4 RBC 4.08 Hgb 11.7 Hct 35.6 MCV 87.4 MCH 28.7 MCHC 32.8 RDW 16.5 H Plt Count 187 D MPV 8.5 Absolute Neuts (auto) Neutrophils % Lymphocytes % Monocytes % Eosinophils % Basophils % Nucleated RBC % Platelet Estimate Platelet Comment Sodium 144 Potassium 4.4 Chloride 108 H Carbon Dioxide 30 D Anion Gap 6 L BUN 21 H Creatinine 1.4 H Creat Clearance w eGFR 52.62 Random Glucose 89 D Calcium 9.2 Phosphorus Magnesium Total Bilirubin 0.5 AST 46 H ALT 29 Alkaline Phosphatase 90 Ammonia Total Protein 7.3 Albumin 3.7 Vitamin B12 1404 H TSH 0.74 RPR Titer 03/17/18 08:10 WBC RBC Hgb Hct MCV MCH MCHC RDW Plt Count MPV Absolute Neuts (auto) Neutrophils % Lymphocytes % Monocytes % Eosinophils % Basophils % Nucleated RBC % Platelet Estimate Platelet Comment Sodium 144 Potassium 4.0 Chloride 109 H Carbon Dioxide 25 Anion Gap 10 BUN 21 H Creatinine 1.3 Creat Clearance w eGFR 57.31 Random Glucose 84 Calcium 9.3 Phosphorus 3.0 Magnesium 2.1 Total Bilirubin AST ALT Alkaline Phosphatase Ammonia Total Protein Albumin Vitamin B12 TSH RPR Titer Active Medications Generic Name Dose Route Start Last Admin Trade Name Freq PRN Reason Stop Dose Admin Acetaminophen 325 mg 03/17/18 17:38 Tylenol - PO Q8H PRN PAIN 6-10 Alprazolam 2 mg 03/17/18 22:00 Xanax - PO TID [facility] Aspirin 81 mg 08/08/18 17:18 Asa - PO DAILY SAMANTA Atorvastatin Calcium 80 mg 03/17/18 22:00 Lipitor - PO HS SAMANTA Bupropion HCl 300 mg 03/17/18 17:30 03/17/18 18:07 Wellbutrin Xl - PO 300 mg DAILY SAMANTA Administration Heparin Sodium (Porcine) 5,000 unit 03/17/18 06:00 03/17/18 14:46 Heparin - SQ 5,000 unit TID SAMANTA Administration Sodium Chloride 1,000 mls @ 75 mls/hr 03/17/18 04:00 03/17/18 04:34 Normal Saline - IV 75 mls/hr ASDIR SAMANTA Administration Levofloxacin 750 mg in 150 mls @ 150 mls/hr 03/17/18 10:00 03/17/18 11:11 Levaquin 750 Mg Premixed Ivpb - IVPB 03/22/18 09:59 150 mls/hr DAILY SAMANTA Administration Protocol Mirtazapine 15 mg 03/17/18 22:00 Remeron - PO HS SAMANTA Montelukast Sodium 10 mg 03/17/18 22:00 Singulair - PO HS SAMANTA Nicotine 21 mg 03/17/18 17:30 03/17/18 18:07 Nicoderm Patch - TD 21 mg DAILY SAMANTA Administration Oxycodone HCl 10 mg 03/17/18 17:38 Roxicodone - PO Q8H PRN PAIN 6-10 Pregabalin 100 mg 03/17/18 22:00 Lyrica - PO TID SAMANTA Quetiapine Fumarate 50 mg 03/17/18 21:00 Seroquel - PO HS SAMANTA ASSESSMENT/PLAN: Patient is a 57 year old male with past medical history of PVD (s/p femoral artery bypass), CVA, HTN, HLD, and Anxiety disorder, presented with left leg pain s/p mechanical fall. At the ED, patient's sister reported patient to have altered mental status. #Acute metabolic encephalopathy: patient had episode of fever at the ED. -probably secondary to UTI, will need to rule out other causes. -blood culture pending. -CXR neg -fever and AMS, no nuchal rigidity -- rule out meningitis. -RPR titers neg. -patient had episodes of angry outbursts and depression -- Acute psychosis vs. Bipolar disorder. -opiates and BZD positive on urine -- may be drug-induced. -Psychiatry consult appreciated. -rule out stroke-- brain MRI ordered. -Dr. Cuellar consult appreciated. -Quetiapine 50 mg PO q HS (no Zolpidem). -alprazolam to avoid Benzodiazepine withdrawal. -Continue Bupropion XL 300 mg qd while confirming home meds and doses. -Repeat ammonia level -consider XRays of the left foot, ELHAM levels? #UTI: -UA showed 1+protein, 1+blood, 3+leukocyte esterase, 472 WBC, 13 RBC -urine culture pending -IV fluids started -At the ED, patient's sister reported patient to have altered mental status. -IV Levofloxacin 750 mg qd x 5 days #PENNY- due to dehydration. -improved w/ IVF #Hypertension: chronic, controlled #Hyperlipidemia: chronic -continue Lipitor 20 mg. #FEN -IV NS (0.9%) at 100ml/hr -electrolytes wnl, routine BMP monitoring -sodium restricted diet #Prophylaxis -Heparin 5000 units sq tid #Disposition -admit to med-surg -full code -pt eval Visit type - Emergency Visit Emergency Visit: Yes ED Registration Date: 03/17/18 Care time: The patient presented to the Emergency Department on the above date and was hospitalized for further evaluation of their emergent condition. - New Patient This patient is new to me today: Yes Date on this admission: 03/17/18 - Critical Care Critical Care patient: No
[2018-03-17] MEDS: PREGABALIN 100 MG CAPSULE PO SCH (21:32)
[2018-03-17] MEDS: MIRTAZAPINE 15 MG TABLET (FP) PO SCH (21:32)
[2018-03-17] MEDS: ALPRAZolam 2 MG TABLET PO SCH (21:33)
[2018-03-17] MEDS: MONTELUKAST NA 10 MG TABLET PO SCH (21:33)
[2018-03-17] MEDS: ATORVASTATIN CA 80 MG TABLET (FP) PO SCH (21:33)
[2018-03-17] MEDS ORDERED: PATIENT'S OWN MEDICATION (NON-FORMULARY) (Oxycodone Hcl/Acetaminophen [Oxycodone-Acetamino PO SCH (22:00)
[2018-03-18] MEDS ORDERED: ALBUTEROL SO4 0.083% IH SOL 2.5 MG/3 ML VIAL.NEB. NEB ONE (05:13)
[2018-03-18] MEDS: PREGABALIN 100 MG CAPSULE PO SCH ×3 (06:08→21:48)
[2018-03-18] MEDS: SODIUM CHLORIDE 1,000 ML IV SCH (06:08)
[2018-03-18] MEDS: HEPARIN NA (PORCINE) 5,000 UNITS/ML 1ML VIAL SQ SCH ×3 (06:08→21:48)
[2018-03-18] MEDS: ALPRAZolam 2 MG TABLET PO SCH (06:08)
[2018-03-18 08:42] LABS: CHLORIDE 110 mmol/L (98-107); POTASSIUM 3.4 mmol/L (3.5-5.1); SODIUM 142 mmol/L (136-145)
[2018-03-18] MEDS ORDERED: POTASSIUM CHLORIDE 10 MEQ in SODIUM CHLORIDE 100 ML IVPB SCH (09:00)
[2018-03-18 09:35] LABS: ALBUMIN 3.1 g/dl (3.4-5.0); ALK PHOS 80 U/L (45-117); ANION GAP 7 (8-16); BILIRUBIN,TOTAL 0.3 mg/dL (0.2-1.0); BLOOD UREA NITROGEN 15 mg/dL (7-18); CALCIUM 8.8 mg/dL (8.5-10.1); CO2 25 mmol/L (21-32); CREATININE 1.1 mg/dL (0.7-1.3); GLUCOSE,RANDOM 127 mg/dL (74-106); SGOT/AST 31 U/L (15-37); SGPT/ALT 26 U/L (12-78); TOT PROT 6.4 g/dl (6.4-8.2)
[2018-03-18] MEDS ORDERED: ALPRAZolam 2 MG TABLET PO PRN (10:00)
[2018-03-18] MEDS: NICOTINE 21 MG/24 HOURS TOPICAL PATCH TD SCH (10:20)
--- NOTE | 2018-03-18 14:13 | PN ---
Teaching Attending Note Name of Resident: Jean Ahumada ATTENDING PHYSICIAN STATEMENT I saw and evaluated the patient. I reviewed the resident's note and discussed the case with the resident. I agree with the resident's findings and plan as documented. SUBJECTIVE:states continues to have pain but improved. able to ambulate on foot. denies CP, SOB, fever, chills, N/V/C/D OBJECTIVE: Last Vital Signs Temp Pulse Resp BP Pulse Ox 97.9 F 76 18 119/69 98 03/18/18 10:39 03/18/18 10:39 03/18/18 10:39 03/18/18 10:39 03/17/18 21:00 General NAD A&O x3 Extremities R foot diffuse tenderness. pulse intact. good dorsi/plantar flexion. ASSESSMENT AND PLAN: 57 yo M with PMH PVD s/p fem-pop bypass, CVA, hTN, dyslipidemia and anxiety and presented to the ER after mechanical fall and felt to be confused on arrival 1. Acute metabolic encephalopathy- due to UTI. clinically improved. resident spoke to family who states pt is at his baseline. on levaquin day 2. UCX with + organism. f/u Cx. 2. Mechanical fall- footpain is controlled. neurology ordere xr to r/o fracture however pt is able to ambulate on foot. awaiting PT eval 3. PENNY- due to dehydration. resolved. can d/c IVF. 4. hypokalmeia- KCL 5. HTN- controlled 6. dyslipidemia- statin 7. bipolar- no signs of manic episode. on seroquel 8. DVT ppx- hep sq 9. possible d/c later today. awaiting PT eval
[2018-03-18] MEDS: ASPIRIN 81 MG CHEWABLE TABLETS PO SCH (17:11)
--- NOTE | 2018-03-18 17:32 | PN ---
Physical Exam: SUBJECTIVE: Patient seen and examined at bedside. pt was hiding under blanket and anxious c /o foot pain says improving and wants to go home. denies LOC, fever, chills, RANDALL , N/V/D or urinary sxs OBJECTIVE: Vital Signs Period Temp Pulse Resp BP Sys/Roblero Pulse Ox Last 24 Hr 97.8 F-98.7 F 68-87 18-20 102-130/57-78 98 GENERAL: Awake, alert, and fully oriented. agitated and anxious. Found hiding under blanket. HEAD: NCAT EYES: PERRL, extraocular movements intact, sclera anicteric, conjunctiva clear. EARS, NOSE, THROAT: nares patent, oropharynx clear without exudates.MMM NECK: Normal range of motion, supple without lymphadenopathy, JVD, or masses. LUNGS: CTAB. No accessory muscle use. HEART: RRR, normal S1 and S2 without murmur, rub or gallop. ABDOMEN: Soft, nontender, not distended, normoactive bowel sounds. MUSCULOSKELETAL: Normal range of motion at all joints. No CVA tenderness. UPPER EXTREMITIES: 2+ pulses, warm, well-perfused. No cyanosis. No clubbing. No peripheral edema. LOWER EXTREMITIES: 2+ pulses, warm, well-perfused. No calf tenderness. No peripheral edema. NEUROLOGICAL: +facial droop (from previous CVA), sensation intact, motor 5/5. Normal speech. gait - walk w/ cane and unsteady PSYCHIATRIC: Cooperative. Good eye contact. agitated and anxious SKIN: Warm, dry, normal turgor, no rashes or lesions noted. Laboratory Results - last 24 hr 03/18/18 03/18/18 06:30 06:30 Sodium 142 Potassium 3.4 L Chloride 110 H Carbon Dioxide 25 Anion Gap 7 L BUN 15 Creatinine 1.1 Creat Clearance w eGFR > 60 Random Glucose 127 H D Calcium 8.8 Total Bilirubin 0.3 AST 31 D ALT 26 Alkaline Phosphatase 80 D Ammonia 36.99 H Total Protein 6.4 Albumin 3.1 L Active Medications Generic Name Dose Route Start Last Admin Trade Name Freq PRN Reason Stop Dose Admin Acetaminophen 325 mg 03/17/18 17:38 03/17/18 20:46 Tylenol - PO 325 mg Q8H PRN Administration PAIN 6-10 Alprazolam 2 mg 03/18/18 10:00 Xanax - PO BID PRN ANXIETY Aspirin 81 mg 03/18/18 17:18 03/18/18 17:11 Asa - PO 81 mg DAILY SAMANTA Administration Atorvastatin Calcium 80 mg 03/17/18 22:00 03/17/18 21:33 Lipitor - PO 80 mg HS SAMANTA Administration Bupropion HCl 300 mg 03/17/18 17:30 03/18/18 10:20 Wellbutrin Xl - PO 300 mg DAILY SAMANTA Administration Heparin Sodium (Porcine) 5,000 unit 03/17/18 06:00 03/18/18 15:16 Heparin - SQ 5,000 unit TID SAMANTA Administration Levofloxacin 500 mg in 100 mls @ 100 mls/hr 03/19/18 10:00 Levaquin 500 Mg Premixed Ivpb - IVPB 03/19/18 10:59 ONCE ONE Protocol Mirtazapine 15 mg 03/17/18 22:00 03/17/18 21:32 Remeron - PO 15 mg HS SAMANTA Administration Montelukast Sodium 10 mg 03/17/18 22:00 03/17/18 21:33 Singulair - PO 10 mg HS SAMANTA Administration Nicotine 21 mg 03/17/18 17:30 03/18/18 10:20 Nicoderm Patch - TD 21 mg DAILY SAMANTA Administration Oxycodone HCl 10 mg 03/17/18 17:38 03/17/18 20:46 Roxicodone - PO 10 mg Q8H PRN Administration PAIN 6-10 Pregabalin 100 mg 03/17/18 22:00 03/18/18 15:16 Lyrica - PO 100 mg TID SAMANTA Administration Quetiapine Fumarate 50 mg 03/17/18 21:00 03/17/18 20:48 Seroquel - PO 50 mg HS SAMANTA Administration ASSESSMENT/PLAN: Patient is a 57 year old male with past medical history of PVD (s/p femoral artery bypass), CVA, HTN, HLD, and Anxiety disorder, presented with left leg pain s/p mechanical fall. At the ED, patient's sister reported patient to have altered mental status. #Acute metabolic encephalopathy: clinically improved -probably secondary to UTI, will need to rule out other causes. -blood culture pending. -CXR neg -fever and AMS, no nuchal rigidity -- rule out meningitis. -RPR titers neg. -patient had episodes of angry outbursts and depression -- Acute psychosis vs. Bipolar disorder. -opiates and BZD positive on urine -- may be drug-induced. -Psychiatry consult appreciated. -rule out stroke-- brain MRI ordered. -Dr. Cuellar consult appreciated. -Quetiapine 50 mg PO q HS (no Zolpidem) for bipolar -alprazolam to avoid Benzodiazepine withdrawal. -Continue Bupropion XL 300 mg qd while confirming home meds and doses. -ammonia level downtrending -f/u XRays of the left foot #UTI: -UA showed 1+protein, 1+blood, 3+leukocyte esterase, 472 WBC, 13 RBC -urine culture pending -IV fluids started -At the ED, patient's sister reported patient to have altered mental status. -IV Levofloxacin 750 mg qd x 5 days, on day 2. #PENNY- due to dehydration. improved -dc IVF #hypokalmeia- -PO K #Hypertension: chronic, controlled #Hyperlipidemia: chronic -continue Lipitor 20 mg. #FEN -dc IV NS (0.9%) at 100ml/hr -electrolytes wnl, routine BMP monitoring -sodium restricted diet #Prophylaxis -Heparin 5000 units sq tid #Disposition -admit to med-surg -full code -pt eval -contacted sister. states pt is at his baseline and is safe to be with son -likely dc tomorrow Visit type - Emergency Visit Emergency Visit: Yes ED Registration Date: 03/17/18 Care time: The patient presented to the Emergency Department on the above date and was hospitalized for further evaluation of their emergent condition. - New Patient This patient is new to me today: Yes Date on this admission: 03/18/18 - Critical Care Critical Care patient: No
[2018-03-18] MEDS: oxyCODONE HCL 5 MG TABLET PO PRN (18:51)
[2018-03-18] MEDS: ACETAMINOPHEN 325 MG TABLET (FP) PO PRN (18:51)
[2018-03-18] MEDS ORDERED: PT OWN MED DRAWER 7, Y5N ONE ×2 (20:36→21:44)
[2018-03-18] MEDS: ATORVASTATIN CA 80 MG TABLET (FP) PO SCH (21:47)
[2018-03-18] MEDS: MONTELUKAST NA 10 MG TABLET PO SCH (21:47)
[2018-03-18] MEDS: MIRTAZAPINE 15 MG TABLET (FP) PO SCH (21:48)
[2018-03-18] MEDS: QUEtiapine FUMARATE 25 MG TABLET (FP) PO SCH (21:48)
[2018-03-19] MEDS: HEPARIN NA (PORCINE) 5,000 UNITS/ML 1ML VIAL SQ SCH ×2 (06:33→14:20)
[2018-03-19] MEDS: PREGABALIN 100 MG CAPSULE PO SCH ×2 (06:33→14:20)
[2018-03-19] MEDS: ASPIRIN 81 MG CHEWABLE TABLETS PO SCH (09:09)
[2018-03-19] MEDS: NICOTINE 21 MG/24 HOURS TOPICAL PATCH TD SCH (09:12)
[2018-03-19 12:21] VITALS: BMI 20.6
--- NOTE | 2018-03-19 13:54 | PN ---
Progress Note (short form) - Note Progress Note: Patient seen for Psych follow up> Further history indicated tat he had been taking meds for DEpression< Had been going to [facility] for follow up. Patient has been on anti depressant meds , Ni history of In Patienty psych Hospitalizations. MS: alert, oriented, not hallucinating or delusional at this time> Denies any suicidal or Homicidal ideas or plans, Cognition is grossly intact. Plan> patient does not want to go to Psych Voluntarily at this time, will follow up at [facility]. 2) Patient does not meet the criteria for In Voluntary Psych Hospitalization at this time. 3)Discharge Patient when medically stable.
--- NOTE | 2018-03-19 14:01 | PN ---
Teaching Attending Note Name of Resident: Jean Ahumada ATTENDING PHYSICIAN STATEMENT I saw and evaluated the patient. I reviewed the resident's note and discussed the case with the resident. I agree with the resident's findings and plan as documented. SUBJECTIVE:states his foot is still painful but improved with pain medication. states its the same pain he always experiences. denies CP, SOB, fever, chills, N /V/C/D OBJECTIVE: Last Vital Signs Temp Pulse Resp BP Pulse Ox 98.2 F 83 18 112/68 98 03/19/18 10:00 03/19/18 10:00 03/19/18 10:00 03/19/18 10:00 03/19/18 09:00 General NAD A&O x3 ASSESSMENT AND PLAN: 57 yo M with PMH PVD s/p fem-pop bypass, CVA, hTN, dyslipidemia and anxiety and presented to the ER after mechanical fall and felt to be confused on arrival 1. Acute metabolic encephalopathy- due to UTI. clinically improved. resident spoke to family who states pt is at his baseline. on levaquin day 3. UCX showing champagne sensitive Ecoli. PCN allergy noted. 2. Mechanical fall- footpain is controlled. XR showing osteopenia but no fracture. pt will need DEXA scan to evaluate further to see if he would benefit from bisphosphanate therapy. awaiting PT eval 3. PENNY- due to dehydration. resolved. 4. hypokalmeia- resolved 5. HTN- controlled 6. dyslipidemia- statin 7. bipolar- no signs of manic episode. on seroquel 8. DVT ppx- hep sq 9. possible d/c later today. awaiting PT eval
[2018-03-19 15:10] VITALS: BP 114/68; PULSE 78; TEMP 98.6
--- NOTE | 2018-03-19 15:56 | DS ---
Physical Exam: SUBJECTIVE: Patient seen and examined at bedside. pt was hiding under blanket and anxious c/ o some foot pain but says improving and wants to go home. denies LOC, fever, chills, RANDALL, N/V/D or urinary sxs. Pt was able to walk 50 ft. OBJECTIVE: Vital Signs Period Temp Pulse Resp BP Sys/Roblero Pulse Ox Last 24 Hr 98.2 F-98.6 F 71-83 18-20 112-127/68-89 98 PHYSICAL EXAM GENERAL: Awake, alert, and fully oriented. agitated and anxious. HEAD: NCAT EYES: PERRL, extraocular movements intact, sclera anicteric, conjunctiva clear. EARS, NOSE, THROAT: nares patent, oropharynx clear without exudates.MMM NECK: Normal range of motion, supple without lymphadenopathy, JVD, or masses. LUNGS: CTAB. No accessory muscle use. HEART: RRR, normal S1 and S2 without murmur, rub or gallop. ABDOMEN: Soft, nontender, not distended, normoactive bowel sounds. MUSCULOSKELETAL: Normal range of motion at all joints. No CVA tenderness. UPPER EXTREMITIES: 2+ pulses, warm, well-perfused. No cyanosis. No clubbing. No peripheral edema. LOWER EXTREMITIES: 2+ pulses, warm, well-perfused. No calf tenderness. No peripheral edema. NEUROLOGICAL: +facial droop (from previous CVA), sensation intact, motor 5/5. Normal speech. gait - walked 50 ft w/o cane and steady PSYCHIATRIC: Cooperative. Good eye contact. agitated and anxious SKIN: Warm, dry, normal turgor, no rashes or lesions noted. 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 At the ED, patient's sister reported patient to have altered mental status. Admitted for acute metabolic encephalopathy 2/2 UTI s/p mechanical fall. UCX showing champagne sensitive Ecoli. pt was tx w/ IV levaquin (pt has PCN allergy) and pain meds, and sxs improved. CT head, tibia/fibula Xray, and L foot xray were all negative for fracture but showed osteopenia. pt will f/u outpt w/ DEXA scan to evaluate further to see if he would benefit from bisphosphanate therapy. Pt was seen by neuro Dr. Cuellar, and was started on seroquel for bipolar, will f/ u outpt. We contacted family who confirmed that pt is at his baseline. Pt is safe and ready for discharge Minutes to complete discharge: 35 Discharge Summary Reason For Visit: AMS CLOSED HEAD INJURY Current Active Problems Acute metabolic encephalopathy (Acute) Acute renal failure (ARF) (Acute) Closed head injury (Acute) Foot pain (Acute) Mental status alteration (Acute) UTI (urinary tract infection) (Acute) Hyperlipidemia (Chronic) Hypertension (Chronic) Condition: Stable - Instructions Diet, Activity, Other Instructions: You were admitted for confusion and after having a fall, and were found to have a urinary tract infection We gave you antibiotics and your symptoms improved. You were found to have no fractures and we gave you medications for your pain. You got an X-ray of your left foot which showed some possible loss of calcium/ density of the bone. Please follow up with your primary care physician about having a DEXA scan to measure the density and strength of your bones. Please continue taking Levaquin for 4 more days for treatment of your urinary tract infection You were started on a new medication called Seroquel for sleep. Please continue taking and follow up with your neurologist. Please resume your home medications that you were taking prior to coming to the hospital. Please monitor your blood pressure at home. Please follow up with your primary care physician in 1 week Please follow up with a neurologist in 1 week Please follow up with a psychiatrist in 2 week If you experience any pain with urination, fevers, confusion, or increased pain in your legs please call 911 or come to the ER. Referrals: Finn Hobson MD [Staff Physician] - 2 Weeks Guido Cuellar MD [Staff Physician] - 1 Week Cynthia Charlton MD [Primary Care Provider] - 1 Week Disposition: HOME - Home Medications Comprehensive Discharge Medication List: Ambulatory Orders Aspirin [ASA -] 81 mg PO DAILY 04/16/12 Alprazolam [Xanax] 2 mg PO TID 03/16/18 Cilostazol [Pletal -] 100 mg PO BID 03/16/18 Montelukast Sodium [Singulair] 10 mg PO HS 03/16/18 Nicotine Patch [Nicoderm Patch -] 1 patch TD DAILY 03/16/18 Oxycodone HCl/Acetaminophen [Oxycodone-Acetaminophen 10-325] 1 each PO TID 03/16 Atorvastatin Ca [Lipitor] 80 mg PO DAILY 03/17/18 Bupropion HCl [Wellbutrin Xl -] 300 mg PO DAILY 03/17/18 Mirtazapine [Remeron -] 15 mg PO HS 03/17/18 Pregabalin [Lyrica] 100 mg PO TID 03/17/18 Levofloxacin [Levaquin] 500 mg PO DAILY 4 Days #4 tablet 03/18/18 Quetiapine Fumarate [Seroquel -] 50 mg PO HS 30 Days #60 tablet 03/18/18 This patient is new to me today: Yes Date on this admission: 03/19/18 Emergency Visit: Yes ED Registration Date: 03/17/18 Care time: The patient presented to the Emergency Department on the above date and was hospitalized for further evaluation of their emergent condition. Critical Care patient: No - Discharge Referral Referred to [facility] No
[2018-03-20] MEDS ORDERED: MULTIVITAMINS (DAILY MVI) TABLET (FP) PO SCH (10:00)
== END 2018-03-19 17:04 | disposition home or self-care (01) | DRG 689 ==
LOC: JER 13:31 → JERBED 03-17 02:52 → J7W 03-17 16:20
PROVIDERS: ADMIT Internal Medicine; ATTEND Internal Medicine
DX: N39.0 Urinary tract infection, site not specified (principal); G93.41 Metabolic encephalopathy; N17.9 Acute kidney failure, unspecified; B96.20 Unspecified Escherichia coli [E. coli] as the cause of diseases classified elsewhere; S09.90XA Unspecified injury of head, initial encounter; I73.9 Peripheral vascular disease, unspecified; F41.9 Anxiety disorder, unspecified; F17.210 Nicotine dependence, cigarettes, uncomplicated; E78.00 Pure hypercholesterolemia, unspecified; I10 Essential (primary) hypertension; E86.0 Dehydration; F31.9 Bipolar disorder, unspecified; R29.6 Repeated falls; G51.0 Bell's palsy; D86.9 Sarcoidosis, unspecified; E87.6 Hypokalemia; W17.89XA Other fall from one level to another, initial encounter; Y92.89 Other specified places as the place of occurrence of the external cause; Y99.8 Other external cause status; Z86.73 Personal history of transient ischemic attack (TIA), and cerebral infarction without residual deficits; Z88.0 Allergy status to penicillin
CPT/HCPCS: 36415; 70450-TC; 71045-TC-FY; 73590-TC-LT-FY; 73610-TC-LT-FY; 73630-TC-LT; 80048; 80053; 80307; 81003; 81015; 82140; 82607; 83735; 84100; 84443; 85025; 85027; 86593; 87040; 87086; 87186; 93005; 93010; 94640; 97116-GP; 97161-GP; 99285-25; J1644; J7030

== ENCOUNTER 2018-08-22 16:34 | Emergency (ER) | payer OTHER ==
[2018-08-22 16:45] VITALS: BP 127/76; PULSE 68; TEMP 98.5; BMI 22.3
[2018-08-22] MEDS ORDERED: ALBUTEROL SO4 2.5/IPRATROPIUM 0.5 INH SOL 3 ML VIAL.NEB. NEB ONE ×2 (18:04→18:19)
[2018-08-22] MEDS: ALBUTEROL SO4 2.5/IPRATROPIUM 0.5 INH SOL 3 ML VIAL.NEB. NEB SCH ×2 (18:19→18:21)
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
== END 2018-08-22 20:34 | disposition left against medical advice (07) ==
LOC: JERFT 16:34
PROC: 3E0F7GC Introduction of Other Therapeutic Substance into Respiratory Tract, Via Natural or Artificial Opening (ICD-10-PCS; principal; 2018-08-22)
DX: J70.5 Respiratory conditions due to smoke inhalation (principal); X02.0XXA Exposure to flames in controlled fire in building or structure, initial encounter; Y93.89 Activity, other specified; Y92.038 Other place in apartment as the place of occurrence of the external cause; Y99.8 Other external cause status; J45.909 Unspecified asthma, uncomplicated; I25.10 Atherosclerotic heart disease of native coronary artery without angina pectoris; I10 Essential (primary) hypertension; Z95.5 Presence of coronary angioplasty implant and graft; I73.9 Peripheral vascular disease, unspecified; F41.9 Anxiety disorder, unspecified; E78.00 Pure hypercholesterolemia, unspecified; Z86.73 Personal history of transient ischemic attack (TIA), and cerebral infarction without residual deficits
CPT/HCPCS: 82375; 94640; 99281-25